=== PATIENT | male | born 1970 | race Two or more races ===

== ENCOUNTER 2017-11-02 10:07 | Day surgery (SDC) | payer BC ==
[2017-11-02] MEDS ORDERED: cefOXitin SODIUM 2 GM in NS 100 ML IV ONE (10:31)
[2017-11-02] MEDS ORDERED: LR 1,000 ML IV ONE (10:33)
[2017-11-02] MEDS ORDERED: BUPIVACAINE/EPI 0.5% 30 ML SDV ONE (12:52)
--- NOTE | 2017-11-02 13:24 | PDHPUP ---
History & Physical Update H&P update statement: This history and physical update is based on an assessment of the patient which was completed after admission or registration (within 24 hours), but prior to the surgery/procedure. H&P update: H&P reviewed & patient examined, no change in patient's condition since H&P completed
--- NOTE | 2017-11-02 13:43 | PDANEPAE ---
ANE History of Present Illness I&D abscess ANE Past Medical History - Cardiovascular History Hx Hypertension: Yes Hx Arrhythmias: No Hx Chest Pain: No Hx Coronary Artery / Peripheral Vascular Disease: No Hx CHF / Valvular Disease: No Hx Palpitations: No - Pulmonary History Hx COPD: No Hx Asthma/Reactive Airway Disease: No Hx Recent Upper Respiratory Infection: No Hx Oxygen in Use at Home: No Hx Sleep Apnea: No Sleep Apnea Screening Result - Last Documented: Positive - Neurologic History Hx Cerebrovascular Accident: No Hx Seizures: No Hx Dementia: No - Endocrine History Hx Diabetes: No - Renal History Hx Renal Disorders: No - Liver History Hx Hepatic Disorders: No - Neurological & Psychiatric Hx Hx Neurological and Psychiatric Disorders: No - Cancer History Hx Cancer: No - Congenital Disorder History Hx Congenital Disorders: No - GI History Hx Gastrointestinal Disorders: Yes - Other Health History Other Health History: NA - Chronic Pain History Chronic Pain: No - Surgical History Prior Surgeries: CYST REMOVAL OF HEAD AND GROIN "MANY YEARS AGO" ANE Review of Systems Review of Systems: - Exercise capacity METS (RN): 5 METS ANE Patient History - Allergies Allergies/Adverse Reactions: No Known Allergies Allergy (Verified 10/20/14 16:20) - Home Medications Home medications: home medication list seen and reviewed Home Medications: Amlodipine Besylate 11/02/17 [Last Taken 11/01/17] - NPO status NPO Status: no food or drink >8 hours NPO Since - Liquids (Date): 11/02/17 NPO Since - Liquids (Time): 10:00 NPO Since - Solids (Date): 11/01/17 NPO Since - Solids (Time): 19:30 - Anes Hx Anes Hx: post operative nausea and vomiting - Smoking Hx Smoking Status: Never smoked Marijuana use: No - Alcohol Use Alcohol Use: Rarely - Family Anes Hx Family Anes Hx: none Family Hx Anesthesia Complications: NA ANE Labs/Vital Signs - Vital Signs Blood Pressure: 163/101 Heart Rate: 75 Respiratory Rate: 16 O2 Sat (%): 96 Height: 167.64 cm Weight: 111.584 kg ANE Physical Exam - Airway Neck exam: FROM Mallampati Score: Class 2 Mouth exam: normal dental/mouth exam - Pulmonary Pulmonary: no respiratory distress - Cardiovascular Cardiovascular: regular rate and rhythym - ASA Status ASA Status: II ANE Anesthesia Plan Anesthesia Plan: GA w LMA
[2017-11-02] MEDS ORDERED: ONDANSETRON 4 MG/2 ML VIAL ONE (13:50)
[2017-11-02] MEDS ORDERED: PROPOFOL/EMULSION 500 MG/50 ML BOTTLE IV ONE (13:50)
[2017-11-02] MEDS ORDERED: DEXAMETHASONE 4 MG/ML VIAL ONE (13:50)
[2017-11-02] MEDS ORDERED: fentaNYL 100 MCG/2 ML INJ ONE (13:50)
[2017-11-02] MEDS ORDERED: LIDOCAINE 2% JELLY 5 ML TUBE ONE (13:51)
[2017-11-02] MEDS ORDERED: LIDOCAINE 2% 100 MG/5 ML SYR ONE (13:51)
[2017-11-02] MEDS ORDERED: HYDROGEN PEROXIDE 236 ML BOTTLE TP ONE (14:26)
[2017-11-02] MEDS ORDERED: METHYLENE BLUE 0.5% 50 MG/10 ML AMP ONE (14:26)
[2017-11-02] MEDS ORDERED: fentaNYL 100 MCG/2 ML INJ IVP PRN (14:46)
[2017-11-02] MEDS ORDERED: ALBUTEROL 3 ML DEYVIAL IH PRN (14:46)
[2017-11-02] MEDS ORDERED: MEPERIDINE 25 MG/0.5 ML AMP IVP PRN (14:46)
[2017-11-02] MEDS ORDERED: ONDANSETRON 4 MG/2 ML VIAL IVP PRN (14:46)
[2017-11-02] MEDS ORDERED: PROMETHAZINE HCL 25 MG/ML INJ IVP PRN (14:46)
[2017-11-02] MEDS ORDERED: LABETALOL HCL 5 MG/ML 20 ML MDV IVP PRN (14:46)
[2017-11-02] MEDS ORDERED: LR 500 ML IV PRN (14:46)
[2017-11-02] MEDS ORDERED: PHENYLEPHRINE HCL 100 MCG/ML SYR IVP PRN (14:46)
[2017-11-02] MEDS ORDERED: DEXAMETHASONE 4 MG/ML VIAL IVP PRN (14:46)
[2017-11-02] MEDS ORDERED: oxyCODONE IR 5 MG TAB PO PRN (14:46)
[2017-11-02] MEDS ORDERED: ACETAMINOPHEN 500 MG TAB PO PRN (14:46)
[2017-11-02] MEDS ORDERED: HYDROCODONE/APAP 5/325 TAB PO PRN (14:46)
[2017-11-02] MEDS ORDERED: NALOXONE HCL 0.4 MG/ML INJ IVP PRN (14:46)
--- NOTE | 2017-11-02 15:44 | POSTANESTH ---
Post Anesthetic Evaluation Cardiovascular Status: Normal, Stable Respiratory Status: Normal, Stable Level of Consciousness/Mental Status: Can Participate in Eval Pain Control: Adequate, Prn Tx Ordered Nausea/Vomiting Control: Adequate, Prn Tx Ordered Complications Possibly Related to Anesthesia: None Noted
[2017-11-02] MEDS ORDERED: oxyCODONE IR 5 MG TAB ONE (15:49)
[2017-11-02] MEDS ORDERED: ACETAMINOPHEN 500 MG TAB ONE (15:52)
--- NOTE | 2017-11-02 15:52 | POSTOPPROG ---
Post Op Note Date of Operation: 11/02/17 Surgeon: Ozzy Pathak Anesthesiologist: NARGIS Anesthesia: GET(General Endotracheal) Pre-op Diagnosis: PERIRECTAL ABSCESS AND ANAL FISTULA Post-op Diagnosis: SAME Indication: RECURRENT INFECTION Procedure: EXAM UNDER ANESTHESIA, I AND D OF PERIRECTAL ABSCESS, ANAL FISTULOTOMY Findings: A DIRECT POSTERIOR ANAL FISTULA WITH A PERSISTENT SMALL ABSCESS, IT DID INV Inf/Abcess present in the surg proc area at time of surgery?: Yes Depth: Deep Incisional (Fascial) EBL: Minimal Complications: NONE Specimen(s): ABSCESS AND FISTULA
[2017-11-02 16:32] VITALS: BP 126/89
--- NOTE | 2017-11-03 09:20 | GOP ---
DATE OF OPERATION: 11/02/2017 SURGEON: Ozzy Pathak MD ANESTHESIOLOGIST: Dr. Diaz. PREOPERATIVE DIAGNOSIS: Perirectal abscess and fistula in ANO. POSTOPERATIVE DIAGNOSIS: Perirectal abscess and fistula in ANO. PROCEDURE PERFORMED: Incision and drainage of perirectal abscess and anal fistulectomy. FINDINGS: The patient was found to have a penetrating fistula into the sphincter muscle at the 7 o'c lock position of the anus associated with a small perirectal abscess. ESTIMATED BLOOD LOSS: Negligible. DESCRIPTION OF PROCEDURE: The patient taken to the operating room where he received a satisfactory g eneral endotracheal anesthesia by Dr. Diaz. He was placed in the lithotomy position and prepped and draped in the usual sterile fashion. The external opening of the abscess was probed. A fair amount of purulent material was removed. The fistula tract was probed and demonstrated entering through th e superficial muscle layers into the anal canal. This was injected with some peroxide to help demons trate that. Excision was then made around the abscess cavity, and the tract was followed down throug h the superficial portion of the sphincter to the anal canal. This was completely excised. Hemostas is was obtained with electrocautery. The wound was infiltrated with 0.5% Marcaine. The wound was th en dressed with a Xeroform gauze. He tolerated the procedure well and was taken to the recovery room in good condition. COMPLICATIONS: None. /[id number]/MODL
== END 2017-11-02 16:37 | disposition home or self-care (01) ==
LOC: FSGY 10:07
PROVIDERS: ATTEND Surgery
PROC: 0DQQ0ZZ Repair Anus, Open Approach (ICD-10-PCS; principal; 2017-11-02 13:30)
PROC: 0D9Q8ZZ Drainage of Anus, Via Natural or Artificial Opening Endoscopic (ICD-10-PCS; principal; 2017-11-02 13:30)
DX: K60.4 Rectal fistula (principal); I10 Essential (primary) hypertension
CPT/HCPCS: J0694; J1100; J2001; J2405; J2704; J3010; Q9968